=== PATIENT | male | born 1995 | race Caucasian/White ===

== ENCOUNTER 2018-02-03 15:12 | Emergency (ER) | payer SELFPAY ==
[~2018-02-03] VITALS: Ht 157.5 cm; Wt 98.0 kg
[2018-02-03] MEDS ORDERED: FAMOTIDINE 20MG/2ML VIAL IV STA (18:30)
[2018-02-03] MEDS ORDERED: ONDANSETRON HCL 4MG/2ML INJ IV STA (18:30)
[2018-02-03] MEDS ORDERED: SODIUM CHLORIDE 0.9% 1,000 ML IV ONE (18:30)
[2018-02-03] MEDS ORDERED: MORPHINE SULFATE 10 MG/ML CPJ IV ONE (18:30)
[2018-02-03 20:54] LABS: BASOPHILS % 0.2 % (0.0-2.0); EOSINOPHILS % 0.2 % (0.0-5.0); HEMATOCRIT. 44.2 % (42.0-52.0); HEMOGLOBIN. 14.8 g/dL (14.0-18.0); LYMPHOCYTES % 7.6 % (20.0-50.0); MEAN CORPUSCULAR HEMOGLOBIN 28.8 pg (28.0-32.0); MEAN PLATELET VOLUME 8.3 fl (7.4-10.4); MONOCYTES % 3.7 % (2.0-8.0); NEUTROPHILS % 88.3 % (40.0-76.0); PLATELET 279 x1000/uL (130-400); RED BLOOD CELL COUNT 5.14 mill/uL (4.7-6.1); RED CELL DISTRIBUTION WIDTH 13.6 % (11.6-14.6)
[2018-02-03 21:00] LABS: CHLORIDE 107 mEq/L (98-107)
[2018-02-03 21:01] LABS: PROTHROMBIN TIME 10.5 sec (9.1-11.1)
[2018-02-03 21:04] LABS: ETHANOL BLOOD < 10 mg/dL
[2018-02-03 21:35] VITALS: BP 124/71
== END 2018-02-03 21:48 | disposition home or self-care (01) ==
LOC: ER 19:48
DX: K29.70 Gastritis, unspecified, without bleeding (principal); R05 Cough
CPT/HCPCS: 36415; 74176; 80053; 83690; 83880; 84484; 85025; 85610; 96361; 96374; 96375; 99284; G0482; J2270; J2405; J3490; J7030